=== PATIENT | male | born 1945 | race Asian ===

== ENCOUNTER 2016-10-18 17:54 | Emergency (ER) | payer OTHER ==
--- NOTE | 2016-10-18 17:57 | ED Physician Chart ---
Chief Complaint/HPI - Patient Information Date Seen:: 10/18/16 Time Seen:: 17:57 Chief Complaint:: abrasion to right lower leg History of Present Illness:: Severity 1-year-old male, history of dementia, brought in from nursing facility with acute, mild, abrasion to right lower extremity. Happened about 15 minutes prior to arrival when he was attempting to climb a fence and scraped his leg on the fence. Has some associated slight oozing of the wound. Denies numbness or tingling of distal extremity, head injury, loss of consciousness, chest pain, palpitations. Historian:: Patient Review:: Nurse's Note Reviewed Review of Systems - Review of Systems Other: Complete system review otherwise unremarkable except as noted in history of present illness. Past Medical History - Past Medical History Past Medical History: Dementia Family History: None Social History: Non Smoker, No Alcohol, No Drug Use, Care Facility Surgical History: None Psychiatricy History: None Medication: Reviewed Family Medical History - Family Member Mother History Unknown: Yes Ethnicity: Non- Physical Exam - Physical Examination Other:: INITIAL VITAL SIGNS: Reviewed by me GENERAL: Alert and interactive. No acute distress HEAD: Head is normocephalic and atraumatic EYES: EOMI. PERRL. No scleral icterus. No conjunctival injection ENT: Moist mucous membranes. NECK: Supple. No masses. Full range of motion RESPIRATORY: No tachypnea. Clear breath sounds bilaterally. No wheezing, rales, or rhonchi CV: Regular rate and rhythm. No murmurs, rubs, or gallops ABDOMEN: Soft, non-distended, non-tender. No guarding. No rebound. No masses. EXTREMITIES: Right mid manzano has small abrasion about 1 cm x 1 cm. No active bleeding. Slight oozing. SKIN: Warm and dry. No obvious rashes. NEUROLOGIC: Alert and oriented. Face is symmetric. Speech is normal. Moves all extremities equally. Motor and sensory distally intact. ED Septic Shock - . Is Septic Shock (SBP<90, OR Lactate>4 mmol\L) present?: No Reassessment (Disposition) - Reassessment Reassessment:: Patient has small abrasion to right manzano. He cleaned the wound and covered with bacitracin. Follow-up PCP 1-2 days. Return to ER precautions given. Patient says he understands and agrees with the plan. Reassessment Condition:: Improved - Diagnosis Diagnosis:: Acute abrasion to right lower leg - Aftercare/Follow up Instructions Aftercare/Follow-Up Instructions:: Counseled pt regarding lab results/diagnosis & need follow up, Refer to Discharge Instructions - Patient Disposition Discharge/Transfer:: Home Time:: 18:18 Condition at Disposition:: Improved ED Discharge Plan - Patient Disposition Admit/Discharge/Transfer: PT DISCHARGED HOME Condition at Disposition: Improved Instructions: Abrasion
[2016-10-18] MEDS ORDERED: Bacitracin pkt 1 gm Pkt TP STA (18:11)
== END 2016-10-18 18:15 | disposition short-term general hospital (02) ==
LOC: ER 17:54
DX: S80.811A Abrasion, right lower leg, initial encounter (principal); Y93.39 Activity, other involving climbing, rappelling and jumping off; Y93.89 Activity, other specified; Y92.89 Other specified places as the place of occurrence of the external cause; Y99.8 Other external cause status
CPT/HCPCS: Z7502